=== PATIENT | female | born 1970 | race Caucasian/White ===

== ENCOUNTER 2017-01-31 20:55 | Emergency (ER) | payer BC, MEDICAID ==
[~2017-01-31] VITALS: Ht 170.2 cm; Wt 80.0 kg
[~2017-01-31 20:55] MED LIST: ASPI-650 PO; ATOR20TA PO; NICO1PAT4 TD; OMEP-110 PO
[2017-01-31] MEDS ORDERED: SODIUM CHLORIDE FLUSH 10ML SYR IVF ONE (22:00)
[2017-01-31] MEDS ORDERED: SODIUM CHLORIDE 0.9% 1,000ML IVBOLUS ONE (22:00)
[2017-01-31 22:18] LABS: ASPARTATE AMINO TRANSFERASE 16 U/L (15-37); BLOOD UREA NITROGEN 8 mg/dL (7-18)
[2017-01-31 23:49] VITALS: BP 100/65
== END 2017-01-31 23:52 | disposition home or self-care (01) ==
LOC: ED 23:46
DX: R55 Syncope and collapse (principal); F17.200 Nicotine dependence, unspecified, uncomplicated; E86.1 Hypovolemia; Z86.73 Personal history of transient ischemic attack (TIA), and cerebral infarction without residual deficits
CPT/HCPCS: 36415; 71010; 80053; 80329; 85025; 85610; 85730; 93005; 96360; 96361; 99285; J7030; G0480

== ENCOUNTER → 2018-08-09 | Outpatient (CLI) | payer OTHER ==
[~2018-08-09] MED LIST changes: +ASPI-496 PO; +ATOR40TA78 PO; +MEDR10TA PO; +NICO-486 TD; -NICO1PAT4 TD; +OMEP40CA6 PO
== END | disposition home or self-care (01) ==
LOC: STAR 15:27
PROVIDERS: ATTEND Obstetrics & Gynecology
DX: Z01.818 Encounter for other preprocedural examination (principal); N91.2 Amenorrhea, unspecified; N93.9 Abnormal uterine and vaginal bleeding, unspecified
CPT/HCPCS: 93005

== ENCOUNTER 2018-08-15 05:26 | Observation (INO) | payer OTHER ==
[~2018-08-15] VITALS: Ht 171.4 cm; Wt 82.0 kg
[2018-08-15] MEDS ORDERED: LACTATED RINGERS 1,000 ML IV SCH (06:28)
[2018-08-15 06:29] VITALS: BP 115/81
[2018-08-15] MEDS ORDERED: LIDOCAINE-MPF 1%, 2ML INFIL ONE (06:30)
[2018-08-15 06:32] LABS: HCG UR SG 1.021 (1.003-1.030)
[2018-08-15 06:41] LABS: AMPHETAMINE SCREEN, URINE Negative (Negative); BARBITURATE SCREEN, URINE Negative (Negative); BENZODIAZEPINE SCREEN, URINE Negative (Negative); CANNABINOID SCREEN, URINE Negative (Negative); COCAINE SCREEN, URINE Negative (Negative); METHADONE SCREEN, URINE Negative (Negative); OPIATE SCREEN, URINE Negative (Negative)
[2018-08-15] MEDS ORDERED: FLUORESCEIN SODIUM 500 MG/5 ML ONE (07:26)
[2018-08-15] MEDS ORDERED: INDIGO CARMINE 0.8%, 5ML ONE (07:26)
[2018-08-15] MEDS ORDERED: BUPIVACAINE/PF-EPI 0.25% 1:200K ONE ×2 (07:26→08:34)
[2018-08-15] MEDS ORDERED: MIDAZOLAM 1 MG/ML, 2ML ONE ×2 (07:32→10:00)
[2018-08-15] MEDS ORDERED: FENTANYL PF 100 MCG/2ML ONE (07:32)
[2018-08-15] MEDS ORDERED: METOCLOPRAMIDE 5 MG/ML, 2ML ONE (07:36)
[2018-08-15] MEDS ORDERED: PROPOFOL 10 MG/ML, 20ML ONE (07:36)
[2018-08-15] MEDS ORDERED: GLYCOPYRROLATE 0.2MG/1ML, 5ML ONE (07:36)
[2018-08-15] MEDS ORDERED: CEFAZOLIN 1,000 MG ONE (07:36)
[2018-08-15] MEDS ORDERED: NEOSTIGMINE 1 MG/ML, 10ML ONE (07:36)
[2018-08-15] MEDS ORDERED: ONDANSETRON 2MG/ML, 2ML ONE (07:36)
[2018-08-15] MEDS ORDERED: DEXAMETHASONE 4 MG/ML, 1ML ONE (07:36)
[2018-08-15] MEDS ORDERED: ROCURONIUM 10 MG/ML,10ML ONE (07:36)
[2018-08-15] MEDS ORDERED: HYDROmorphone 2 MG/ML, 1ML ONE (09:58)
[2018-08-15] MEDS ORDERED: ACETAMINOPHEN 650 MG/20.3 ML UDC ONE (09:59)
[2018-08-15] MEDS ORDERED: OXYcodone 5 MG/5 ML ORAL.SOL UDC ONE (09:59)
[2018-08-15] MEDS ORDERED: OXYcodone/APAP 5/325MG TABLET PO PRN (10:00)
[2018-08-15] MEDS ORDERED: MEPERIDINE/PF 25MG/0.5ML IVPush PRN (10:00)
[2018-08-15] MEDS ORDERED: OXYcodone 5 MG/5 ML ORAL.SOL UDC PO PRN (10:00)
[2018-08-15] MEDS ORDERED: MORPHINE SULFATE 4 MG/ML, 1ML IVPush PRN (10:00)
[2018-08-15] MEDS ORDERED: MIDAZOLAM 1 MG/ML, 2ML IV PRN (10:00)
[2018-08-15] MEDS ORDERED: LABETALOL 5MG/ML, 20ML IV PRN (10:00)
[2018-08-15] MEDS ORDERED: ONDANSETRON 2MG/ML, 2ML IVPush PRN (10:00)
[2018-08-15] MEDS ORDERED: FENTANYL PF 100 MCG/2ML IV PRN (10:00)
[2018-08-15] MEDS: HYDROmorphone 1 MG/ML, 1ML IV PRN ×3 (10:04→10:47)
[2018-08-15] MEDS ORDERED: ACETAMINOPHEN 650 MG/20.3 ML UDC PO PRN (10:30)
[2018-08-15] MEDS ORDERED: IBUPROFEN 600 MG TABLET PO SCH (11:00)
== END 2018-08-15 16:00 | disposition home or self-care (01) ==
LOC: OUT 05:26 → ORIP 09:56
PROVIDERS: ADMIT Obstetrics & Gynecology; ATTEND Obstetrics & Gynecology
DX: D25.1 Intramural leiomyoma of uterus (principal); N83.202 Unspecified ovarian cyst, left side; N83.201 Unspecified ovarian cyst, right side; N88.8 Other specified noninflammatory disorders of cervix uteri; N80.0 Endometriosis of uterus; N94.6 Dysmenorrhea, unspecified; G89.29 Other chronic pain; F17.210 Nicotine dependence, cigarettes, uncomplicated; E78.5 Hyperlipidemia, unspecified; Z86.73 Personal history of transient ischemic attack (TIA), and cerebral infarction without residual deficits
CPT/HCPCS: 58552; 80307; 81025; 88307; G0378; J0690; J1100; J1170; J2250; J2405; J2704; J2710; J2765; J3010; J3490; J7120